=== PATIENT | female | born 1980 | race African-American/Black ===

== ENCOUNTER 2023-11-07 13:35 | Inpatient (IN) | payer MEDICAID ==
[~2023-11-07] VITALS: Ht 162.6 cm; Wt 67.6 kg
[~2023-11-07 13:35] MED LIST: BENZ1TAB70 PO; DIVA-112 PO; GABA-1201 PO; OLAN10TA74 PO; OLAN5TAB52 PO; VENL25TA47 PO
[2023-11-07 23:45] VITALS: BP 114/62; PULSE 76; RESP 18; TEMP 98; O2SAT 98
[2023-11-08] MEDS ORDERED: ZOLPIDEM TARTRATE 10 MG TABLET PO PRN (00:45)
[2023-11-08] MEDS ORDERED: HALOPERIDOL 5 MG TABLET PO PRN ×2 (00:45→02:15)
[2023-11-08] MEDS: OLANZapine 10 MG TABLET PO SCH ×2 (09:52→16:17)
[2023-11-08] MEDS: DIVALPROEX SODIUM 250 MG DR TABLET PO SCH ×2 (09:52→20:49)
[2023-11-08] MEDS: BACITRACIN 28 GM OINTMENT TP SCH (09:53)
[2023-11-08] MEDS: AMOX TR/POT CLAV 500 MG/125 MG TABLET PO SCH (09:54)
[2023-11-08] MEDS: BENZTROPINE MESYLATE 1 MG TABLET PO SCH (09:54)
[2023-11-08] MEDS: FLUoxetine HCL 20 MG CAPSULE PO SCH (09:54)
[2023-11-08] MEDS ORDERED: MAGNESIUM HYDROXIDE SUSPENSION 30 ML UDCUP PO PRN (10:00)
[2023-11-08] MEDS ORDERED: NICOTINE 14 MG/24 HOUR PATCH TD PRN (10:00)
[2023-11-08] MEDS ORDERED: GuaiFENesin/D-METHORPHAN [SUGAR-FREE] 200-20MG/10 ML SYRUP UDCUP PO PRN (10:00)
[2023-11-08] MEDS ORDERED: MAG HYDROX/ALUMINUM HYD/SIMETH ES 30 ML SUSPENSION UDCUP PO PRN (10:00)
[2023-11-08] MEDS ORDERED: ONDANSETRON HCL 4 MG TABLET PO PRN (10:00)
[2023-11-08] MEDS ORDERED: DOCUSATE SODIUM 100 MG CAPSULE PO PRN (10:00)
[2023-11-08] MEDS ORDERED: CloNIDine HCL 0.1 MG TABLET PO PRN (10:00)
[2023-11-08] MEDS ORDERED: ALBUTEROL SULFATE HFA 90 MCG/PUFF 8 GM INHALER IH PRN (10:00)
[2023-11-08] MEDS ORDERED: LOPERAMIDE HCL 2 MG CAPSULE PO PRN (10:00)
[2023-11-08] MEDS ORDERED: ACETAMINOPHEN 325 MG TABLET PO PRN (10:00)
[2023-11-08] MEDS ORDERED: PETROLATUM,WHITE 28 GM JELLY TP PRN (10:00)
[2023-11-08 10:32] VITALS: BP 105/66; PULSE 78; RESP 19; TEMP 97.9; O2SAT 100
[2023-11-08 11:30] VITALS: BP 121/77; PULSE 72; RESP 18; TEMP 97.5
[2023-11-08] MEDS: IBUPROFEN 400 MG TABLET PO PRN (11:30)
[2023-11-08 12:30] VITALS: RESP 17
[2023-11-08 21:16] VITALS: RESP 18
[2023-11-09 10:28] VITALS: BP 105/64; PULSE 77; RESP 16; TEMP 98.3; O2SAT 98
[2023-11-09 22:07] VITALS: RESP 18
[2023-11-10 10:47] LABS: BASOPHILS % (AUTO) 0.4 % (0.0-2.0); EOSINOPHILS % (AUTO) 1.4 % (1.0-6.0); HEMATOCRIT 37.4 % (36-46); HEMOGLOBIN 12.3 g/dL (12.0-16.0); LYMPHOCYTES # (AUTO) 4.3 K/uL (1.0-4.8); LYMPHOCYTES % (AUTO) 50.9 % (22.0-44.0); MEAN CORPUSCULAR HEMOGLOBIN 30.5 pg (26.0-34.0); MEAN CORPUSCULAR HGB CONC 32.8 G/dL (31.0-37.0); MEAN CORPUSCULAR VOLUME 93 fL (80-100); MONOCYTES # (AUTO) 0.3 K/uL (0.1-1.0); MONOCYTES % (AUTO) 3.9 % (2.0-9.0); NEUTROPHILS # (AUTO) 3.7 K/uL (1.8-7.7); NEUTROPHILS % (AUTO) 43.4 % (40.0-70.0); PLATELET COUNT (AUTO) 292 K/uL (150-450); RED BLOOD CELL COUNT(AUTO) 4.02 MIL/uL (4.00-5.20); RED CELL DISTRIBUTION WIDTH 13.9 % (11.5-14.5); WHITE BLOOD COUNT (AUTO) 8.4 K/uL (4.5-11.0)
[2023-11-10] MEDS: GABAPENTIN 400 MG CAPSULE PO ONE (11:26)
[2023-11-10 11:35] LABS: ANION GAP 6 mmol/L (8-16); CALCIUM, TOTAL 9.5 mg/dL (8.8-10.5); CARBON DIOXIDE 26 mmol/L (22-29); CHLORIDE 103 mmol/L (98-107); CHOL/HDL RATIO 3.3 (3.9-5.7); CHOLESTEROL 166 mg/dL (131-200); CREATININE 0.35 mg/dL (0.60-1.30); GLOMERULAR FILTR. RATE CALC > 60 mL/min (>60); GLUCOSE,RANDOM 82 mg/dL (70-110); HDL CHOLESTEROL 50 mg/dL (40-60); LDL CHOL (CALC.) 98 mg/dL (0-130); SODIUM SERUM 135 mmol/L (136-145); THYROID STIMULATING HORMONE 0.62 uIU/mL (0.36-3.74); TRIGLYCERIDES 90 mg/dL (15-150); UREA NITROGEN, BLOOD 5 mg/dL (7-18)
[2023-11-10] MEDS: LORazepam 2 MG TABLET PO PRN (12:13)
[2023-11-10 13:12] VITALS: RESP 17
[2023-11-10 13:24] LABS: HEMOGLOBIN A1C 5.2 % (3.8-5.6)
[2023-11-10 20:09] VITALS: BP 91/59; PULSE 80; RESP 16; TEMP 98.7; O2SAT 99
[2023-11-10] MEDS: GABAPENTIN 400 MG CAPSULE PO SCH (20:30)
[2023-11-10] MEDS: OLANZapine 10 MG TABLET PO SCH (20:30)
[2023-11-11 08:45] VITALS: BP 90/60; PULSE 79; RESP 18; TEMP 97.8; O2SAT 98
[2023-11-11] MEDS: GABAPENTIN 400 MG CAPSULE PO SCH (13:42)
[2023-11-11 20:31] VITALS: BP 101/74; PULSE 74; RESP 18; TEMP 97.4; O2SAT 96
[2023-11-12 10:18] VITALS: BP 98/61; PULSE 65; RESP 19; TEMP 97.7; O2SAT 95
[2023-11-12 20:21] VITALS: TEMP 96.8
[2023-11-13 09:00] VITALS: RESP 18; TEMP 97.9
[2023-11-13] MEDS ORDERED: FLUO-177 PO (18:52)
== END 2023-11-13 20:10 | disposition home or self-care (01) | DRG 750 ==
LOC: 3EI 11-08 00:10
PROVIDERS: ADMIT Psychiatry & Neurology Psychiatry; ATTEND Psychiatry & Neurology Psychiatry
PROC: GZHZZZZ Group Psychotherapy (ICD-10-PCS; principal; 2023-11-08)
DX: F25.0 Schizoaffective disorder, bipolar type (principal); R45.851 Suicidal ideations; F15.10 Other stimulant abuse, uncomplicated; F32.A Depression, unspecified; D72.829 Elevated white blood cell count, unspecified; Z59.00 Homelessness unspecified; Z79.899 Other long term (current) drug therapy; Z88.8 Allergy status to other drugs, medicaments and biological substances
CPT/HCPCS: 80048; 80061; 80164; 83036; 84443; 85025; 87081; 99285